=== PATIENT | male | born 1975 | race Caucasian/White ===

== ENCOUNTER 2020-12-25 07:09 | Emergency (ER) | payer BC ==
[2020-12-25 08:07] LABS: HEMOGLOBIN 14.1 gm/dl (14.0-17.5); RED BLOOD COUNT 4.66 M/UL (4.20-5.50); WHITE BLOOD COUNT 12.6 K/UL (4.5-11.0)
[2020-12-25 08:24] LABS: BUN/CREATININE RATIO 8 (0-10)
[2020-12-25] MEDS ORDERED: DOXYCYCLINE HY100 MG PO (11:36)
== END 2020-12-25 11:45 | disposition home or self-care (01) ==
LOC: ER1 07:09
PROVIDERS: Family Medicine
DX: J18.9 Pneumonia, unspecified organism (principal); R91.1 Solitary pulmonary nodule; F17.290 Nicotine dependence, other tobacco product, uncomplicated
CPT/HCPCS: 71045; 80053; 82550; 82553; 83874; 84484; 85025; 85379; 93005; 99285; Q9967